=== PATIENT | male | born 1950 | race Caucasian/White ===

== ENCOUNTER → 2018-12-03 | Outpatient (CLI) | payer MEDICARE ==
--- NOTE | 2018-12-03 11:09 | KCIC ---
SCAN OF ABDOMINAL AORTA History: Abdominal aortic aneurysm screening Comparison: None. Findings: Multiple grayscale, color, and duplex spectral analysis waveform images of the abdominal aorta are submitted. Proximal abdominal aorta was obscured by bowel gas. Mid abdominal aorta measured up to 2.1 cm, distally 1.8 cm. Mid abdominal aorta peak systolic velocity 110 cm/s, distally 84 cm/s. Right common iliac artery measured up to 1.1 cm, left 0.9 cm. Right common iliac artery peak systolic velocity 112 cm/s, left 109 cm/s. Impression: 1. No abdominal aortic aneurysm is demonstrated of the visualized abdominal aorta although the proximal abdominal aorta is not seen due to bowel gas. Electronically signed by: Benito Langley MD (12/03/2018 11:06 AM) [email or web address]
== END | disposition home or self-care (01) ==
LOC: KCIC US 08:37
PROVIDERS: ATTEND Family Medicine
DX: Z13.6 Encounter for screening for cardiovascular disorders (principal); Z87.891 Personal history of nicotine dependence
CPT/HCPCS: 76770

== ENCOUNTER → 2021-03-22 | Outpatient (CLI) | payer MEDICARE ==
--- NOTE | 2021-03-22 08:31 | RAD ---
EXAM: Lower extremity arterial Doppler sonogram with ankle-brachial indices (JAZZY). HISTORY: Claudication. Peripheral vascular disease. Pain. TECHNIQUE: Doppler sonographic evaluation of the lower extremities was performed and pressure reading s were assessed. FINDINGS: Right brachial pressure: 144 mmHg Left brachial pressure: 144 mmHg Right ankle pressure: 170 mmHg Right JAZZY: 1.2 Left ankle pressure: 150 mmHg Left JAZZY: 1.0 IMPRESSION: Normal bilateral ankle-brachial indices. Electronically signed by: Georgie Devine MD (03/22/2021 8:28 AM) [id number]
== END ==
LOC: US 06:35
PROVIDERS: ATTEND Family Medicine
DX: I73.9 Peripheral vascular disease, unspecified (principal); M79.606 Pain in leg, unspecified
CPT/HCPCS: 93922

== ENCOUNTER → 2021-03-23 | Outpatient (CLI) | payer MEDICARE ==
--- NOTE | 2021-03-23 07:39 | RAD ---
Bilateral lower extremity venous duplex study 03/23/2021 6:45 AM Clinical History: Reason: LEG PAIN, CLAUDICATION / Spl. Instructions: / History: Comparison: None Technique: Using a combination of real time ultrasound imaging and color-flow and pulse Doppler imagi ng techniques along with graded compression and augmentation, duplex evaluation of the deep venous sy stem of the both lower extremities was performed. Multiple images were obtained. Findings: There is no sonographic evidence of deep venous thrombosis involving the visualized deep ve nous structures of either lower extremity. Impression: No evidence of deep venous thrombosis Electronically signed by: Roosevelt Bauer MD (03/23/2021 7:36 AM) [id number]
== END ==
LOC: US 06:37
PROVIDERS: ATTEND Family Medicine
DX: I73.9 Peripheral vascular disease, unspecified (principal); M79.604 Pain in right leg; M79.605 Pain in left leg
CPT/HCPCS: 93970

== ENCOUNTER → 2021-05-15 | Outpatient (CLI) | payer MEDICARE ==
--- NOTE | 2021-05-15 10:44 | KCIC ---
EXAM: Pelvis and bilateral hips, 3 views. HISTORY: Pain. COMPARISON: None. FINDINGS: A frontal view the pelvis and frog-leg views of both hips are obtained. There is no fractur e, dislocation or subluxation. There is mild to moderate marginal acetabular and femoral head spurrin g. There is degenerative change at the visualized lower lumbar levels, primarily at L4-L5. There are incidental vasectomy clips. IMPRESSION: Mild to moderate bilateral hip osteoarthritis. Electronically signed by: Georgie Devine MD (05/15/2021 10:41 AM) [id number]
== END ==
LOC: KCIC 10:10
PROVIDERS: ATTEND Family Medicine
DX: M16.0 Bilateral primary osteoarthritis of hip (principal)
CPT/HCPCS: 73521